=== PATIENT | female | born 1985 ===

== ENCOUNTER 2016-11-27 13:26 | Emergency (ER) | payer OTHER, SELFPAY ==
[2016-11-27 13:26] VITALS: BMI 33.5
[2016-11-27 13:32] VITALS: BP 106/71; PULSE 68; RESP 18; TEMP 98; O2SAT 100
--- NOTE | 2016-11-27 14:51 | RAD ---
PROCEDURE: Radiographs of the Lumbar Spine. HISTORY: Low middle back pain, tender midline COMPARISON: No prior. FINDINGS: BONES: There is mild levocurvature in the lumbar spine There is normal alignment of lumbar vertebral bodies. Lumbar lordosis is maintained. Vertebral bodies are normal in height. Bone mineralization is normal. There is no acute fracture, spondylolysis or spondylolisthesis. DISC SPACES: There is mild degenerative disc disease at L5-S1. The remaining disc heights are maintained. OTHER FINDINGS: There is no pathologic soft tissue calcifications. Both sacroiliac joints are normal IMPRESSION: No acute fracture, spondylolysis or spondylolisthesis. Mild degenerative disc disease at L5-S1.
--- NOTE | 2016-11-27 14:52 | ED PDOC ---
HPI: Back Time Seen by Provider: 11/27/16 13:33 Chief Complaint (Nursing): Back Pain Past Medical History Vital Signs: Last Vital Signs Temp 98 F 11/27/16 13:29 Pulse 68 11/27/16 13:29 Resp 18 11/27/16 13:29 BP 106/71 11/27/16 13:29 Pulse Ox 100 11/27/16 13:29 - Medical History PMH: Asthma, Diabetes Denies: HIV, Chronic Kidney Disease - Surgical History Surgical History: - Family History Family History: States: Unknown Family Hx - Home Medications Home Medications: Ambulatory Orders Medication Instructions Recorded Multivit/Folic Acid/I 1 tab PO DAILY #30 tab 01/24/16 [] Docusate Sodium/Sennosides A 2 tab PO HS PRN #30 tab 07/17/16 [Senokot S 50 MG-8.6 MG] Ferrous Sulfate [Feosol] 325 mg PO BID #90 tab 07/17/16 Ibuprofen [Motrin Tab] 600 mg PO Q4H PRN #30 tab 07/17/16 oxyCODONE/Acetaminophen [Percocet 1 tab PO Q6 #28 tab 07/17/16 5/325 mg Tab] Cyclobenzaprine [Cyclobenzaprine 10 mg PO Q8H PRN #12 tab 11/27/16 HCl] Ibuprofen [Motrin Tab] 800 mg PO Q6H PRN #20 tab 11/27/16 - Allergies Allergies/Adverse Reactions: Allergies Allergy/AdvReac Type Severity Reaction Status Date / Time No Known Allergies Allergy Verified 06/03/16 08:53 - ECG O2 Sat by Pulse Oximetry: 100 Disposition - Clinical Impression Clinical Impression: Sciatica - Patient ED Disposition Is Patient to be Admitted: No Counseled Patient/Family Regarding: Diagnosis, Need For Followup, Rx Given - Disposition Referrals: [facility] [Outside] Disposition: Routine/Home Disposition Time: 14:51 Condition: GOOD Prescriptions: Cyclobenzaprine [Cyclobenzaprine HCl] 10 mg PO Q8H PRN #12 tab PRN Reason: Muscle Spasm Ibuprofen [Motrin Tab] 800 mg PO Q6H PRN #20 tab PRN Reason: Pain Instructions: Sciatica (ED) Forms: [facility] ED School/Work Excuse Print Language: POLISH
== END 2016-11-27 15:45 | disposition home or self-care (01) ==
LOC: H.ER 13:26
DX: M54.30 Sciatica, unspecified side (principal); E11.9 Type 2 diabetes mellitus without complications; M51.37 Other intervertebral disc degeneration, lumbosacral region; J45.909 Unspecified asthma, uncomplicated

== ENCOUNTER 2017-10-17 06:21 | Emergency (ER) | payer SELFPAY ==
[2017-10-17 06:25] VITALS: BMI 33.4
[2017-10-17 06:27] VITALS: O2SAT 98
[2017-10-17] MEDS ORDERED: Sodium Chloride 0.9% 1,000 ML IV STA (07:16)
--- NOTE | 2017-10-17 07:22 | ED PDOC ---
- ECG O2 Sat by Pulse Oximetry: 98 (RA) Pulse Ox Interpretation: Normal Medical Decision Making Medical Decision Making: Time: 7:15 Intial Impression: Epigastric pain Differential diagnoses include but are not limited to: Gastritis, cholecystitis , and cholestasis. Initial Plan: --CMP --Lipase --Urine Preg --Urine dip --CBC with differentials --PTT --Prothrombin Reevaluation: --32 year old female with a history of section presents to the ED with upper abdominal constant pain starting yesterday. She reports nonbloody vomiting and diarrhea, but denies fever or genitourinary symptoms. Patient states no pain medications were taken. Physical Exam: --Heart, Lungs normal --Abdominal: negative for guarding, distended abdomen, tenderness --Moderate painful distress Scribe Attestation: Documented by Chantal Skinner, acting as a scribe for Lexie Mtz MD Provider Scribe Attestation: All medical record entries made by the Scribe were at my direction and personally dictated by me. I have reviewed the chart and agree that the record accurately reflects my personal performance of the history, physical exam, medical decision making, and the department course for this patient. I have also personally directed, reviewed, and agree with the discharge instructions and disposition. Disposition - Disposition Forms: [employer] (Polish)
--- NOTE | 2017-10-17 07:48 | ED PDOC ---
HPI: Abdomen Time Seen by Provider: 10/17/17 07:04 Chief Complaint (Nursing): Abdominal Pain Chief Complaint (Provider): Abdominal Pain History Per: Patient History/Exam Limitations: no limitations Onset/Duration Of Symptoms: Days (1x) Current Symptoms Are (Timing): Still Present Quality Of Discomfort: "Pain" Associated Symptoms: Vomiting (nonbloody), Diarrhea. denies: Fever Additional Complaint(s): 32 year old female with history of section presents to the ED with constant upper abdominal pain since yesterday. She reports nonbloody vomiting and diarrhea, but denies fever or genitourinary symptoms. No pain medications were taken. Patient denies any other medical complaint. PMD: none provided. Past Medical History Vital Signs: Last Vital Signs Temp 98.8 F 10/17/17 13:27 Pulse 85 10/17/17 13:27 Resp 20 10/17/17 13:27 BP 114/77 10/17/17 13:27 Pulse Ox 98 10/17/17 13:27 - Medical History PMH: Asthma, Diabetes Denies: HIV, Chronic Kidney Disease - Surgical History Surgical History: - Family History Family History: States: Unknown Family Hx - Home Medications Home Medications: Ambulatory Orders Medication Instructions Recorded Multivit/Folic Acid/I 1 tab PO DAILY #30 tab 01/24/16 [] Docusate Sodium/Sennosides A 2 tab PO HS PRN #30 tab 07/17/16 [Senokot S 50 MG-8.6 MG] Ferrous Sulfate [Feosol] 325 mg PO BID #90 tab 07/17/16 Ibuprofen [Motrin Tab] 600 mg PO Q4H PRN #30 tab 07/17/16 oxyCODONE/Acetaminophen [Percocet 1 tab PO Q6 #28 tab 07/17/16 5/325 mg Tab] Cyclobenzaprine [Cyclobenzaprine 10 mg PO Q8H PRN #12 tab 11/27/16 HCl] Ibuprofen [Motrin Tab] 800 mg PO Q6H PRN #20 tab 11/27/16 Famotidine [Pepcid] 20 mg PO BID #20 tab 10/17/17 Ondansetron ODT [Zofran ODT] 4 mg PO Q8H PRN #20 odt 10/17/17 - Allergies Allergies/Adverse Reactions: Allergies Allergy/AdvReac Type Severity Reaction Status Date / Time No Known Allergies Allergy Verified 06/03/16 08:53 Review of Systems ROS Statement: Except As Marked, All Systems Reviewed And Found Negative Constitutional: Negative for: Fever Gastrointestinal: Positive for: Vomiting (nonbloody), Diarrhea Physical Exam - Reviewed Nursing Documentation Reviewed: Yes Vital Signs Reviewed: Yes - Physical Exam Appears: Positive for: Non-toxic, In Acute Distress (moderate painful) Head Exam: Positive for: ATRAUMATIC, NORMOCEPHALIC Skin: Positive for: Normal Color, Warm, Dry Eye Exam: Positive for: Normal appearance, EOMI, PERRL Neck: Positive for: Normal, Painless ROM Cardiovascular/Chest: Positive for: Regular Rate, Rhythm. Negative for: Murmur Respiratory: Positive for: Normal Breath Sounds. Negative for: Respiratory Distress Gastrointestinal/Abdominal: Negative for: Tenderness, Distended, Guarding, Rebound Extremity: Positive for: Normal ROM (upper and lower extremities) - Laboratory Results Result Diagrams: 10/17/17 07:31 10/17/17 07:31 - ECG O2 Sat by Pulse Oximetry: 98 (RA) Pulse Ox Interpretation: Normal Medical Decision Making Medical Decision Making: Time: 7:15 Initial Impression: Epigastic pain Differentials diagnoses include but are not limited to: gastritis, cholecystitis , and cholestasis Initial Plan: --CMP --Lipase --Urine preg --Urine dip --CBC with differentials --PTT --Prothrombin --Morphine 2 mg IV --NS IV 1000 mls/hr --Zofan ODT 4 mg PO --Urinalysis --Abdomen US Scribe Attestation: Documented by Chantal Skinner, acting as a scribe for Lexie Mtz MD Provider Scribe Attestation: All medical record entries made by the Scribe were at my direction and personally dictated by me. I have reviewed the chart and agree that the record accurately reflects my personal performance of the history, physical exam, medical decision making, and the department course for this patient. I have also personally directed, reviewed, and agree with the discharge instructions and disposition. Disposition - Clinical Impression Clinical Impression: Gastritis, Elevated LFTs - Disposition Referrals: [facility] [Outside] Disposition: Routine/Home Disposition Time: 12:14 Condition: IMPROVED Prescriptions: Famotidine [Pepcid] 20 mg PO BID #20 tab Ondansetron ODT [Zofran ODT] 4 mg PO Q8H PRN #20 odt PRN Reason: Nausea/Vomiting Instructions: Gastritis, Liver Function Test Forms: [employer] (Nepali), [facility] ED School/Work Excuse Print Language: AZERBAIJANI
[2017-10-17 08:21] VITALS: RESP 20
[2017-10-17 08:23] LABS: ALB/GLOB RATIO 1.1 (1.0-2.1); ALBUMIN 3.7 g/dL (3.5-5.0); ALT/SGPT 125 U/L (9-52); AST/SGOT 117 U/L (14-36); BLOOD UREA NITROGEN 6 mg/dl (7-17); CALCIUM 8.8 mg/dL (8.4-10.2); GFR AFRICAN-AMERICAN > 60; GFR NON-AFRICAN AMERICAN > 60; LIPASE 48 U/L (23-300)
[2017-10-17 08:26] LABS: BASO % 0.3 % (0.0-2.0); EOS # 0.1 K/uL (0.0-0.7); EOS % 0.9 % (0.0-4.0); HEMOGLOBIN 11.8 g/dL (12.0-16.0); LYMPH # 2.3 K/uL (1.0-4.3); MEAN CELL VOLUME 79.4 fl (81.0-99.0); MEAN CORPUSCULAR HEMOGLOBIN 27.8 pg (27.0-31.0); MEAN PLATELET VOLUME 8.8 fl (7.2-11.7); MONO # 0.9 K/uL (0.0-0.8); MONO % 9.3 % (0.0-10.0); NEUT # 6.4 K/uL (1.8-7.0); NEUT % 65.5 % (50.0-75.0); NRBC % 0.1 % (0.0-0.0); RBC 4.25 Mil/uL (3.80-5.20); RED CELL DISTRIBUTION WIDTH 14.8 % (11.5-14.5); WHITE BLOOD COUNT 9.8 K/uL (4.8-10.8)
[2017-10-17 08:37] LABS: INR 1.1 (0.9-1.2); PARTIAL THROMBOPLASTIN TIME 28.4 Seconds (25.6-37.1); PROTHROMBIN TIME 12.1 Seconds (9.8-13.1)
[2017-10-17 08:59] LABS: SQUAMOUS EPITHIAL 5 /hpf (0-5); URINE BILIRUBIN NEGATIVE (NEGATIVE); URINE BLOOD LARGE (NEGATIVE); URINE CLARITY SLIGHTY-CLOUDY (Clear); URINE COLOR YELLOW (YELLOW); URINE GLUCOSE (UA) NEG (Normal); URINE LEUKOCYTE ESTERASE TRACE Leu/uL (Negative); URINE PROTEIN 100 mg/dL (NEGATIVE); URINE UROBILINOGEN 0.2-1.0 mg/dL (0.2-1.0)
[2017-10-17] MEDS ORDERED: Potassium Chloride 20 mEq ER Tab PO STA (10:09)
--- NOTE | 2017-10-17 11:22 | US ---
HISTORY: Epigastric pain COMPARISON: Comparison is made to the previous study dated 02/04/2010 TECHNIQUE: Sonographic evaluation of the right upper quadrant of the abdomen. FINDINGS: LIVER: Measures 15.7 cm in length. Normal echogenicity of the liver parenchyma. No mass. No intrahepatic bile duct dilatation. GALLBLADDER: Unremarkable. No gallstones. COMMON BILE DUCT: Measures 4.2 mm. No stones. No dilatation. PANCREAS: The pancreas is partially visualized due to overlying bowel gas. RIGHT KIDNEY: Measures 12 x 5.6 x 5.1 cm in length. Normal echogenicity. No calculus, mass, or hydronephrosis. AORTA: No aneurysmal dilatation. IVC: Unremarkable. OTHER FINDINGS: None . IMPRESSION: No evidence of cholelithiasis or cholecystitis. No ultrasound evidence of acute pathology at the right upper quadrant noted.
[2017-10-17] MEDS ORDERED: Potassium Chloride 20 mEq ER Tab PO ONE (13:16)
[2017-10-17 13:21] VITALS: BP 114/77; PULSE 85; TEMP 98.8
== END 2017-10-17 13:40 | disposition home or self-care (01) ==
LOC: H.ER 06:21
DX: K29.70 Gastritis, unspecified, without bleeding (principal); R78.9 Finding of unspecified substance, not normally found in blood; E11.9 Type 2 diabetes mellitus without complications; J45.909 Unspecified asthma, uncomplicated
CPT/HCPCS: 76705; 80053; 81003; 81025; 83690; 85025; 85610; 85730; 96360; 99285; J2270; J7030

== ENCOUNTER 2018-03-27 18:13 | Emergency (ER) | payer SELFPAY ==
[2018-03-27 18:14] VITALS: BMI 33.4
[2018-03-27 18:26] VITALS: RESP 18
[2018-03-27] MEDS ORDERED: DiphenhydrAMINE 50 mg/ml Inj IVP STA (19:01)
[2018-03-27] MEDS ORDERED: Sodium Chloride 0.9% 1,000 ML IV STA (19:02)
[2018-03-27 19:38] LABS: BASO % 0.3 % (0.0-2.0); EOS % 0.2 % (0.0-4.0); HEMOGLOBIN 13.4 g/dL (12.0-16.0); LYMPH # 1.7 K/uL (1.0-4.3); LYMPH % 10.7 % (20.0-40.0); MEAN CELL VOLUME 81.8 fl (81.0-99.0); MEAN CORPUSCULAR HEMOGLOBIN 26.5 pg (27.0-31.0); MEAN CORPUSCULAR HGB CONC 32.4 g/dL (33.0-37.0); MEAN PLATELET VOLUME 8.4 fl (7.2-11.7); MONO # 0.6 K/uL (0.0-0.8); NEUT # 13.1 K/uL (1.8-7.0); NEUT % 84.8 % (50.0-75.0); RBC 5.06 Mil/uL (3.80-5.20); RED CELL DISTRIBUTION WIDTH 15.6 % (11.5-14.5); WHITE BLOOD COUNT 15.5 K/uL (4.8-10.8)
[2018-03-27 19:42] LABS: ALBUMIN 4.8 g/dL (3.5-5.0); BLOOD UREA NITROGEN 17 mg/dl (7-17); CALCIUM 10.3 mg/dL (8.4-10.2); GFR NON-AFRICAN AMERICAN > 60
[2018-03-27 19:43] LABS: ALB/GLOB RATIO 1.2 (1.0-2.1); ALT/SGPT 47 U/L (9-52); AST/SGOT 31 U/L (14-36); LIPASE 90 U/L (23-300)
--- NOTE | 2018-03-27 20:16 | ED PDOC ---
HPI: Headache Time Seen by Provider: 03/27/18 18:27 Chief Complaint (Nursing): Headache Chief Complaint (Provider): Headache History Per: Patient History/Exam Limitations: no limitations Onset/Duration Of Symptoms: Days (x5) Current Symptoms Are (Timing): Still Present Quality: "Pain" Associated Symptoms: Nausea, Vomiting. denies: Photophobia Additional Complaint(s): 32 year old female with no significant past medical history presents to the ED with headache onset 5 days. Patient reports headache started gradually in the morning when she woke up and has gotten worse since. Today pain is associated with nausea and vomiting, but she denies photophobia and fever. Patient took Tylenol today but vomited it up. She reports feeling dizzy, lightheaded and having epigastric pain. Today when she was vomiting she felt a lot of tingling and numbness around her mouth. She reports a lot of familial stress recently. PMD: no regular doctor Past Medical History Reviewed: Historical Data, Nursing Documentation, Vital Signs Vital Signs: Last Vital Signs Temp 98.0 F 03/27/18 19:15 Pulse 72 03/27/18 18:23 Resp 18 03/27/18 18:23 BP 120/74 03/27/18 18:23 Pulse Ox 100 03/27/18 18:23 - Medical History PMH: Asthma, Diabetes Denies: HIV, Chronic Kidney Disease - Surgical History Surgical History: (x2) - Family History Family History: States: No Known Family Hx - Social History Current smoker - smoking cessation education provided: No Ex-Smoker (has not smoked in the last 12 months): No Alcohol: None Drugs: Denies - Home Medications Home Medications: Ambulatory Orders Medication Instructions Recorded RX: Multivit/Folic Acid/I 1 tab PO DAILY #30 tab 01/24/16 [] RX: Docusate Sodium/Sennosides A 2 tab PO HS PRN #30 tab 07/17/16 [Senokot S 50 MG-8.6 MG] RX: Ferrous Sulfate [Feosol] 325 mg PO BID #90 tab 07/17/16 RX: Ibuprofen [Motrin Tab] 600 mg PO Q4H PRN #30 tab 07/17/16 RX: oxyCODONE/Acetaminophen 1 tab PO Q6 #28 tab 07/17/16 [Percocet 5/325 mg Tab] Cyclobenzaprine [Cyclobenzaprine 10 mg PO Q8H PRN #12 tab 11/27/16 HCl] Ibuprofen [Motrin Tab] 800 mg PO Q6H PRN #20 tab 11/27/16 Famotidine [Pepcid] 20 mg PO BID #20 tab 10/17/17 Ondansetron ODT [Zofran ODT] 4 mg PO Q8H PRN #20 odt 10/17/17 Famotidine [Pepcid] 20 mg PO BID #20 tab 03/28/18 RX: Omeprazole 20 mg PO DAILY #30 capsule. 03/28/18 - Allergies Allergies/Adverse Reactions: Allergies Allergy/AdvReac Type Severity Reaction Status Date / Time No Known Allergies Allergy Verified 03/27/18 18:23 Review of Systems ROS Statement: Except As Marked, All Systems Reviewed And Found Negative Constitutional: Negative for: Fever Gastrointestinal: Positive for: Nausea, Vomiting, Abdominal Pain (epigastric) Neurological: Positive for: Numbness (and tingling around mouth), Headache, Dizziness, Other (no photophobia, lightheaded) Physical Exam - Reviewed Nursing Documentation Reviewed: Yes Vital Signs Reviewed: Yes - Physical Exam Appears: Positive for: Non-toxic, In Acute Distress (mild painful) Head Exam: Positive for: ATRAUMATIC, NORMOCEPHALIC Skin: Positive for: Warm, Dry Eye Exam: Positive for: EOMI, PERRL ENT: Negative for: Pharyngeal Erythema, Tonsillar Exudate Neck: Positive for: Painless ROM, Supple Cardiovascular/Chest: Positive for: Regular Rate, Rhythm. Negative for: Murmur Respiratory: Positive for: Normal Breath Sounds. Negative for: Respiratory Distress Gastrointestinal/Abdominal: Positive for: Soft, Tenderness (epigastric tenderness to palpation ). Negative for: Mass, Distended, Guarding, Rebound Back: Positive for: Normal Inspection. Negative for: Decreased ROM Extremity: Positive for: Normal ROM. Negative for: Deformity Lymphatic: Negative for: Adenopathy Neurologic/Psych: Positive for: Alert, professional model II-XII (intact), Oriented (x3), Cerebellar Tests (normal), Other (normal speech). Negative for: Motor/Sensory Deficits - Laboratory Results Result Diagrams: 03/27/18 19:30 03/27/18 19:30 - ECG O2 Sat by Pulse Oximetry: 100 (RA) Pulse Ox Interpretation: Normal Medical Decision Making Medical Decision Making: Time: 1826 Initial Impression: Headache Differential diagnoses include but are not limited to: migraine, atypical migraine, tension headache, dehydration, electrolyte abnormality, intracranial mass. Initial Impression: --CT head w/o contrast --CMP --Lipase --U preg --U dip --CBC with differentials --Benadryl 25 mg IVP --NS --Reglan 10 mg IVP --Tylenol 975 mg PO Time: 1939 CT Head without Intravenous Contrast. FINDINGS: BRAIN No acute intraparenchymal hemorrhage. No mass lesion. No abnormal enhancement. No CT evidence for acute territorial infarct. No midline shift or extra-axial collections. VENTRICLES: No hydrocephalus. ORBITS: The orbits are unremarkable. SINUSES AND MASTOIDS: The paranasal sinuses and mastoid air cells are clear. BONES: No fracture. IMPRESSION: No acute intracranial abnormality. Time: 2214 --Labs demonstrate leukocytosis otherwise no significant abnormalities. Urine dip demonstrated ketones but no infection. On reevaluation, patient reports her headache and her stomach pain improved however she feels that the medications have made her sleepy and dizzy. Additional IV fluid ordered. 2330 --Pt vomited after PO challenge and reports return of pain. Cordelia Welch, CT ordered. Scribe Attestation: Documented by Chantal Skinner, acting as a scribe for Lyn Perez MD Provider Scribe Attestation: All medical record entries made by the Scribe were at my direction and personally dictated by me. I have reviewed the chart and agree that the record accurately reflects my personal performance of the history, physical exam, medical decision making, and the department course for this patient. I have also personally directed, reviewed, and agree with the discharge instructions and disposition. Disposition - Clinical Impression Clinical Impression: Gastritis Counseled Patient/Family Regarding: Studies Performed - Disposition Disposition: Transfer of Care Disposition Time: 00:00 Condition: STABLE Prescriptions: Famotidine [Pepcid] 20 mg PO BID #20 tab RX: Omeprazole 20 mg PO DAILY #30 capsule. Print Language: MALAYSIAN Patient Signed Over To: Benjamin Woodruff Handoff Comments: Pending CT, reassesment and final ER disposition
--- NOTE | 2018-03-28 00:08 | ED PDOC ---
- Laboratory Results Result Diagrams: 03/27/18 19:30 03/27/18 19:30 - ECG O2 Sat by Pulse Oximetry: 100 (RA) Pulse Ox Interpretation: Normal Medical Decision Making Medical Decision Making: Time: 0000 -- Patient endorsed to me by Dr. Perez, pending CT and re-evaluation. Time: 0159 -- Spoke to [facility] Rad radiologist who states CT is negative. Time: 300 --Patient feeling better after maalox and viscous lido. Patient likely suffering with gastritis, will prescribe PPI and pepcid. Advised patient to followup with clinic. Well appearing with stable vitals upon discharge. Results relayed with certified vice president payment BONNIE Leonard. Scribe Attestation: Documented by Yonatan Wood, acting as a scribe for Benjamin Woodruff MD. Provider Scribe Attestation: All medical record entries made by the Scribe were at my direction and personally dictated by me. I have reviewed the chart and agree that the record accurately reflects my personal performance of the history, physical exam, medical decision making, and the department course for this patient. I have also personally directed, reviewed, and agree with the discharge instructions and disposition. Disposition - Clinical Impression Clinical Impression: Gastritis - POA Present On Arrival: None - Disposition Referrals: [facility] [Outside] Disposition: Routine/Home Disposition Time: 03:05 Condition: IMPROVED Prescriptions: Famotidine [Pepcid] 20 mg PO BID #20 tab Omeprazole 20 mg PO DAILY #30 capsule. Instructions: Gastritis Forms: [facility] (Barbadian) Print Language: WELSH
[2018-03-28] MEDS ORDERED: Sodium Chloride 0.9% 50 ML IV ONE (00:15)
[2018-03-28] MEDS ORDERED: Iohexol 300 100 ML IJ ONE (00:15)
[2018-03-28] MEDS ORDERED: Alum-Mag Hydrox-Simethicone Susp (30 mL) ONE (02:24)
[2018-03-28] MEDS ORDERED: Alum-Mag Hydrox-Simethicone Susp (30 mL) PO ONE (02:25)
[2018-03-28 03:21] VITALS: BP 118/73; PULSE 70; TEMP 98.7
--- NOTE | 2018-03-28 10:48 | CT ---
Date of service: 03/27/2018 PROCEDURE: CT HEAD WITHOUT CONTRAST. HISTORY: HEADACHE DIZZINESS COMPARISON: None available. TECHNIQUE: Axial computed tomography images were obtained through the head/brain without intravenous contrast. Radiation dose: Total exam DLP = 780.79 mGy-cm. This CT exam was performed using one or more of the following dose reduction techniques: Automated exposure control, adjustment of the mA and/or kV according to patient size, and/or use of iterative reconstruction technique. FINDINGS: HEMORRHAGE: No intracranial hemorrhage. BRAIN: No mass effect or edema. No atrophy or chronic microvascular ischemic changes. VENTRICLES: Unremarkable. No hydrocephalus. CALVARIUM: Unremarkable. PARANASAL SINUSES: Unremarkable as visualized. No significant inflammatory changes. MASTOID AIR CELLS: Right mastoid air cells are hypoplastic. Left mastoid air cells are well aerated and formed. OTHER FINDINGS: Retro-orbital regions are unremarkable. IMPRESSION: Normal CT of the Head.
--- NOTE | 2018-03-28 13:36 | CT ---
Date of service: 03/28/2018 PROCEDURE: CT Abdomen and Pelvis with contrast HISTORY: abd pain vomiting COMPARISON: 08/23/2013 CT scan TECHNIQUE: Contrast dose: 95 mL Radiation dose: Total exam DLP = 662.09 mGy-cm. This CT exam was performed using one or more of the following dose reduction techniques: Automated exposure control, adjustment of the mA and/or kV according to patient size, and/or use of iterative reconstruction technique. FINDINGS: LOWER THORAX: Unremarkable. LIVER: Liver is mildly fatty infiltrated without evidence of focal mass or intrahepatic ductal dilatation. GALLBLADDER AND BILE DUCTS: Unremarkable. PANCREAS: Unremarkable. No gross lesion or ductal dilatation. SPLEEN: Unremarkable. ADRENALS: Unremarkable. No mass. KIDNEYS AND URETERS: Unremarkable. No hydronephrosis. No solid mass. VASCULATURE: Unremarkable. No aortic aneurysm. No aortic atherosclerotic calcification or mural plaque present. BOWEL: Fluid-filled colon is appreciated with some possible mild thickening of the bowel wall and mild pericolonic inflammatory changes. This is greatest in the right colon and transverse colon region with some lesser degree in the left:. There may be some additional noted in the rectosigmoid region. There is also some mild fluid-filled ileal loops with some subtle enhancement of the wall which may suggest ileitis. No free intraperitoneal air is noted. No focal fluid collection to suggest abscess is noted. Findings suggest colitis and ileitis. APPENDIX: Normal appendix. PERITONEUM: Unremarkable. No free fluid. No free air. LYMPH NODES: Unremarkable. No enlarged lymph nodes. BLADDER: Unremarkable. REPRODUCTIVE: Unremarkable. BONES: No acute fracture. OTHER FINDINGS: None. IMPRESSION: Mild ileitis and colitis of either infectious or inflammatory etiology. No evidence of bowel perforation, ascites, or focal fluid collection to suggest abscess. This agrees with preliminary report provided by the on-call radiologist.
[2018-03-28 21:21] VITALS: O2SAT 100
== END 2018-03-28 03:15 | disposition home or self-care (01) ==
LOC: H.ER 18:13
DX: K29.70 Gastritis, unspecified, without bleeding (principal); R42 Dizziness and giddiness; E11.9 Type 2 diabetes mellitus without complications
CPT/HCPCS: 70450; 74177; 80053; 81025; 83690; 85025; 96361; 96374; 96375; 96376; 99285; J1200; J2405; J2765; J7030; J7042; Q9967